=== PATIENT | male | born 1995 | race Hispanic/Latino ===

== ENCOUNTER 2017-10-16 01:46 | Inpatient (IN) | payer OTHER ==
[~2017-10-16] VITALS: Ht 167.6 cm; Wt 74.6 kg
[2017-10-16 03:33] LABS: CREATININE 1.3 mg/dL (0.5-1.5); POTASSIUM 4.4 mmol/L (3.5-5.1)
[2017-10-16 03:35] LABS: ALBUMIN 3.9 g/dL (3.5-5.0); BILIRUBIN,TOTAL 0.2 mg/dL (0.2-1.0); TOTAL PROTEIN, SERUM 7.7 g/dL (6.0-8.3)
[2017-10-16 03:36] LABS: BASOPHILS % (AUTO) 0.3 % (0.0-5.0); EOSINOPHILS % (AUTO) 5.4 % (0.0-8.0); HEMATOCRIT 37.6 % (42-54); LYMPHOCYTES % (AUTO) 14.4 % (21.0-51.0); MEAN CORPUSCULAR HEMOGLOBIN 31.4 pg (27.0-33.0); MEAN CORPUSCULAR HGB CONC 35.2 g/dL (32.0-36.0); MEAN CORPUSCULAR VOLUME 89.3 fL (79-99); MONOCYTES % (AUTO) 11.2 % (3.0-13.0); NEUTROPHILS % (AUTO) 68.7 % (40.0-77.0); PLATELET COUNT (AUTO) 175 K/uL (130-400); RED BLOOD CELL COUNT(AUTO) 4.21 MIL/uL (4.50-6.20); RED CELL DISTRIBUTION WIDTH 12.9 % (11.0-15.5); WHITE BLOOD COUNT (AUTO) 6.9 K/uL (4.8-10.8)
[2017-10-16 04:25] LABS: ERYTHROCYTE SEDIMENTATION RATE 22 MM/HR (0-15)
[2017-10-16] MEDS ORDERED: SODIUM CHLORIDE 0.9% 1000ML 1,000 ML IV ONE (05:15)
[2017-10-16] MEDS ORDERED: ONDANSETRON HCL 4 MG/2 ML VIAL ONE (05:15)
[2017-10-16] MEDS ORDERED: VANCOMYCIN 1GM+NS 250ML 250 ML IV ONE (05:15)
[2017-10-16] MEDS ORDERED: KETOROLAC TROMETHAMINE 30MG/ML ONE (05:16)
[2017-10-16] MEDS ORDERED: MEROPENEM 1 GM VIAL ONE (05:18)
[2017-10-16] MEDS ORDERED: MORPHINE SULFATE 2 MG/ML 1ML SYG IV PRN (11:00)
[2017-10-16] MEDS ORDERED: ONDANSETRON HCL 4 MG/2 ML VIAL IV PRN (11:00)
[2017-10-16] MEDS ORDERED: VANCOMYCIN 1GM+NS 250ML 250 ML IV SCH (11:00)
[2017-10-16] MEDS ORDERED: LACTULOSE 20 GM/30 ML UDCUP PO PRN (11:00)
[2017-10-16] MEDS ORDERED: ZOLPIDEM TARTRATE 5 MG TAB PO PRN (11:00)
[2017-10-16 14:29] VITALS: BP 125/77
[2017-10-16] MEDS ORDERED: VANCOMYCIN PROTOCOL PER PHARMACY IV SCH (16:45)
[2017-10-16] MEDS ORDERED: COMPOUND IV REFRIGERATED 1 EACH IVSOLN MISC PRN (16:45)
[2017-10-16 19:00] VITALS: BP 110/50
[2017-10-16] MEDS ORDERED: FLU VACC QS2017-18 36MOS UP/PF 60 MCG/0.5 ML ML IM ONE (19:00)
[2017-10-16] MEDS: FAMOTIDINE 20MG TAB 20 MG TAB PO SCH (22:07)
[2017-10-16] MEDS: ACETAMINOPHEN-CODEINE 300/30MG TAB PO PRN (23:31)
[2017-10-16] MEDS: VANCOMYCIN 0.75 GM in N.S. 250 ML IV SCH (23:32)
[2017-10-16 23:54] VITALS: BP 122/63
[2017-10-17 04:00] VITALS: BP 114/52
[2017-10-17] MEDS: VANCOMYCIN 0.75 GM in N.S. 250 ML IV SCH ×3 (06:37→23:16)
[2017-10-17 08:00] VITALS: BP 113/45
[2017-10-17] MEDS: FAMOTIDINE 20MG TAB 20 MG TAB PO SCH ×2 (08:56→21:37)
[2017-10-17] MEDS: ACETAMINOPHEN-CODEINE 300/30MG TAB PO PRN (08:57)
[2017-10-17] MEDS ORDERED: ENOXAPARIN SODIUM 40 MG/0.4 ML SYRINGE SQ SCH (09:00)
[2017-10-17 12:00] VITALS: BP 116/54
[2017-10-17] MEDS ORDERED: VANCOMYCIN 1.5 GM in SODIUM CHLORIDE 0.9% 250 ML IV SCH (15:38)
[2017-10-17 15:54] VITALS: BP 109/46
[2017-10-17 19:00] VITALS: BP 119/57
[2017-10-18] VITALS: BP 123/53
[2017-10-18 04:00] VITALS: BP 119/50
[2017-10-18 05:49] LABS: BASOPHILS % (AUTO) 0.5 % (0.0-5.0); EOSINOPHILS % (AUTO) 3.6 % (0.0-8.0); HEMATOCRIT 39.4 % (42-54); LYMPHOCYTES % (AUTO) 37.3 % (21.0-51.0); MEAN CORPUSCULAR HEMOGLOBIN 30.6 pg (27.0-33.0); MEAN CORPUSCULAR HGB CONC 33.8 g/dL (32.0-36.0); MEAN CORPUSCULAR VOLUME 90.6 fL (79-99); MONOCYTES % (AUTO) 10.6 % (3.0-13.0); PLATELET COUNT (AUTO) 204 K/uL (130-400); RED BLOOD CELL COUNT(AUTO) 4.35 MIL/uL (4.50-6.20); RED CELL DISTRIBUTION WIDTH 13.1 % (11.0-15.5); WHITE BLOOD COUNT (AUTO) 5.4 K/uL (4.8-10.8)
[2017-10-18 06:14] LABS: ALBUMIN 3.2 g/dL (3.5-5.0); BILIRUBIN,TOTAL 0.3 mg/dL (0.2-1.0); TOTAL PROTEIN, SERUM 6.7 g/dL (6.0-8.3)
[2017-10-18] MEDS: VANCOMYCIN 0.75 GM in N.S. 250 ML IV SCH (06:18)
[2017-10-18 08:00] VITALS: BP 137/60
[2017-10-18 11:36] VITALS: BP 143/93
== END 2017-10-18 15:30 | disposition home or self-care (01) | DRG 872 ==
LOC: EDH 01:46 → EDHIP 01:47 → EEVIPCON 01:47 → 3CH 14:00
PROVIDERS: ADMIT Family Medicine; ATTEND Family Medicine
DX: A41.9 Sepsis, unspecified organism (principal); L03.115 Cellulitis of right lower limb
CPT/HCPCS: 36415; 73562; 80053; 80202; 85025; 85651; 87040; J1650; J1885; J2185; J2405; J3370; J7030

== ENCOUNTER 2017-11-07 11:24 | Emergency (ER) | payer OTHER | END 2017-11-07 13:19 | disposition home or self-care (01) | LOC: EDH 11:24 → EEVIPCON 11:24 → EDH 13:19 | DX: L02.31 Cutaneous abscess of buttock (principal); F32.9 Major depressive disorder, single episode, unspecified; Z79.899 Other long term (current) drug therapy | CPT/HCPCS: 99282 ==